=== PATIENT | male | born 1930 | race African-American/Black ===

== ENCOUNTER 2016-08-27 22:46 | Inpatient (IN) | payer MEDICARE, BC ==
[~2016-08-27] VITALS: Ht 180.3 cm; Wt 72.6 kg
[~2016-08-27 22:46] MED LIST: AMLO10TA80 PO; DIGO125T82 PO; DOCU-150 PO; FEBU80TA PO; FURO20TA4 PO; LEVO500T15 PO; NAPHAZOLINE BOTHEYE; OLOP2.5D OP
[2016-08-27] MEDS ORDERED: METHYLPREDNISOLONE SOD SUCC 125 MG/2 ML VIAL IV STA (22:53)
[2016-08-27] MEDS ORDERED: IPRATROPIUM BROMIDE (0.02%) 0.5MG/2.5ML NEB HHN STA (22:53)
[2016-08-27] MEDS ORDERED: ALBUTEROL (0.083%) 2.5MG/3ML NEB HHN STA (22:53)
[2016-08-27 23:14] LABS: BASOPHILS % 0.3 % (0.0-2.0); EOSINOPHILS % 0.3 % (0.0-5.0); HEMATOCRIT. 28.3 % (42.0-52.0); HEMOGLOBIN. 8.9 g/dL (14.0-18.0); LYMPHOCYTES % 20.2 % (20.0-50.0); MEAN CORPUSCULAR HEMOGLOBIN 26.4 pg (28.0-32.0); MEAN CORPUSCULAR HGB CONC 31.3 g/dL (31.0-37.0); MEAN CORPUSCULAR VOLUME 84.3 fL (80.0-94.0); MEAN PLATELET VOLUME 8.5 fl (7.4-10.4); MONOCYTES % 7.4 % (2.0-8.0); NEUTROPHILS % 71.8 % (40.0-76.0); PLATELET 275 x1000/uL (130-400); RED BLOOD CELL COUNT 3.36 mill/uL (4.7-6.1); RED CELL DISTRIBUTION WIDTH 19.4 % (11.6-14.6)
[2016-08-27 23:21] LABS: INR 1.1; PARTIAL THROMBOPLASTIN TIME 22.1 sec (24.0-34.0); PROTHROMBIN TIME 11.4 sec
[2016-08-27 23:26] LABS: ALANINE AMINOTRANSFERASE 32 IU/L (13-61); ALBUMIN 3.5 g/dL (3.4-5.0); ANION GAP 16; CALCIUM 8.7 mg/dL (8.5-10.1); CARBON DIOXIDE 31 mEq/L (21-32); CHLORIDE 98 mEq/L (98-107); INDEX HEMOLYSI 1 (1-3); INDEX ICTERIC 1 (1-4); INDEX LIPEMIC 1 (1-3); TROPONIN I 0.03 ng/mL (0.00-0.04); UREA NITROGEN BLOOD 67 mg/dL (7-21); eGFR 22 mL/min (>60)
[2016-08-27 23:38] LABS: NT PRO B-TYPE NATRIURETIC PEP 38215 pg/mL (5-125)
[2016-08-27] MEDS ORDERED: ALBUTEROL (0.5%) 2.5MG/0.5ML NEB HHN ONE (23:45)
[2016-08-28] MEDS ORDERED: FUROSEMIDE 40MG/4ML VIAL IVP ONE
[2016-08-28 08:10] VITALS: BP 125/91
[2016-08-28 11:01] VITALS: BP 125/91
[2016-08-28] MEDS ORDERED: ACETAMINOPHEN 325MG TABLET PO PRN (11:15)
[2016-08-28] MEDS ORDERED: DOCUSATE SODIUM 100MG CAPSULE PO PRN (11:15)
[2016-08-28] MEDS ORDERED: IPRATROPIUM/ALBUTEROL 0.5-3(2.5)MG/3ML NEB INH PRN (11:15)
[2016-08-28] MEDS ORDERED: GUAIFENESIN 200MG/10ML SUGAR FREE UDC PO PRN (11:15)
[2016-08-28] MEDS ORDERED: ONDANSETRON HCL 4MG/2ML VIAL IV PRN (11:15)
[2016-08-28 12:00] VITALS: BP 111/70
[2016-08-28] MEDS ORDERED: LEVOFLOXACIN 500MG PREMIX 100 ML IV SCH (13:00)
[2016-08-28] MEDS: FUROSEMIDE 40MG/4ML VIAL IV SCH (14:17)
[2016-08-28] MEDS: METHYLPREDNISOLONE SOD SUCC 40 MG/ML VIAL IV SCH ×2 (14:17→18:02)
[2016-08-28] MEDS: ASPIRIN 81MG EC TABLET PO SCH (14:17)
[2016-08-28] MEDS: CARVEDILOL 3.125 MG TABLET PO SCH ×2 (14:17→21:00)
[2016-08-28] MEDS: IPRATROPIUM/ALBUTEROL 0.5-3(2.5)MG/3ML NEB INH SCH ×2 (15:09→20:22)
[2016-08-28 16:00] VITALS: BP 121/68
[2016-08-28 16:15] LABS: TROPONIN I 0.02 ng/mL (0.00-0.04)
[2016-08-28 20:00] VITALS: BP 105/69
[2016-08-28 23:50] LABS: CREATINE KINASE 24 IU/L (39-308); INDEX HEMOLYSI 1 (1-3); TROPONIN I < 0.02 ng/mL (0.00-0.04)
[2016-08-29] VITALS (7 sets, daily range): BP systolic 91–122; BP diastolic 57–85
[2016-08-29] MEDS: IPRATROPIUM/ALBUTEROL 0.5-3(2.5)MG/3ML NEB INH SCH ×4 (00:54→21:09)
[2016-08-29] MEDS: METHYLPREDNISOLONE SOD SUCC 40 MG/ML VIAL IV SCH ×3 (01:04→18:46)
[2016-08-29 06:43] LABS: ALANINE AMINOTRANSFERASE 22 IU/L (13-61); ALBUMIN 3.2 g/dL (3.4-5.0); ANION GAP 17; CALCIUM 8.3 mg/dL (8.5-10.1); CARBON DIOXIDE 28 mEq/L (21-32); CHLORIDE 95 mEq/L (98-107); HDL CHOLESTEROL 64 mg/dL (40-59); INDEX HEMOLYSI 1 (1-3); INDEX ICTERIC 1 (1-4); INDEX LIPEMIC 1 (1-3); LDL CHOLESTEROL 57 mg/dL (5-100); TRIGLYCERIDE 74 mg/dL (0-150); UREA NITROGEN BLOOD 71 mg/dL (7-21); eGFR 26 mL/min (>60)
[2016-08-29 06:52] LABS: BASOPHILS % 0.1 % (0.0-2.0); HEMATOCRIT. 26.4 % (42.0-52.0); HEMOGLOBIN. 8.5 g/dL (14.0-18.0); LYMPHOCYTES % 15.4 % (20.0-50.0); MEAN CORPUSCULAR HEMOGLOBIN 27.1 pg (28.0-32.0); MEAN CORPUSCULAR HGB CONC 32.3 g/dL (31.0-37.0); MEAN CORPUSCULAR VOLUME 83.7 fL (80.0-94.0); MEAN PLATELET VOLUME 8.9 fl (7.4-10.4); MONOCYTES % 2.6 % (2.0-8.0); NEUTROPHILS % 81.9 % (40.0-76.0); PLATELET 246 x1000/uL (130-400); RED BLOOD CELL COUNT 3.15 mill/uL (4.7-6.1); RED CELL DISTRIBUTION WIDTH 19.3 % (11.6-14.6)
[2016-08-29] MEDS: FUROSEMIDE 40MG/4ML VIAL IV SCH (09:43)
[2016-08-29] MEDS: ASPIRIN 81MG EC TABLET PO SCH (09:44)
[2016-08-29] MEDS: CARVEDILOL 3.125 MG TABLET PO SCH ×2 (09:44→20:39)
[2016-08-29] MEDS: POTASSIUM CHLORIDE 10MEQ TABLET SR PO SCH (09:44)
[2016-08-29] MEDS: LEVOFLOXACIN 250MG TABLET PO SCH (18:47)
[2016-08-29] MEDS ORDERED: EPOETIN ALFA 10000UNITS/ML VIAL SUBCUT NR (21:00)
[2016-08-30] VITALS: BP 110/76
[2016-08-30] MEDS: METHYLPREDNISOLONE SOD SUCC 40 MG/ML VIAL IV SCH ×3 (03:24→17:45)
[2016-08-30] MEDS: IPRATROPIUM/ALBUTEROL 0.5-3(2.5)MG/3ML NEB INH SCH ×4 (03:45→20:47)
[2016-08-30 04:00] VITALS: BP 129/75
[2016-08-30 05:59] LABS: HEMATOCRIT. 24.5 % (42.0-52.0); HEMOGLOBIN. 7.9 g/dL (14.0-18.0); LYMPHOCYTES % 21.5 % (20.0-50.0); MEAN CORPUSCULAR HEMOGLOBIN 26.9 pg (28.0-32.0); MEAN CORPUSCULAR HGB CONC 32.2 g/dL (31.0-37.0); MEAN CORPUSCULAR VOLUME 83.6 fL (80.0-94.0); MEAN PLATELET VOLUME 8.9 fl (7.4-10.4); MONOCYTES % 2.7 % (2.0-8.0); NEUTROPHILS % 75.8 % (40.0-76.0); PLATELET 220 x1000/uL (130-400); RED BLOOD CELL COUNT 2.93 mill/uL (4.7-6.1); RED CELL DISTRIBUTION WIDTH 19.4 % (11.6-14.6); WHITE BLOOD COUNT 10.7 x1000/uL (4.5-11.0)
[2016-08-30 07:03] LABS: CHLORIDE 97 mEq/L (98-107); INDEX HEMOLYSI 1 (1-3); INDEX ICTERIC 1 (1-4); INDEX LIPEMIC 1 (1-3)
[2016-08-30 07:20] LABS: ALANINE AMINOTRANSFERASE 21 IU/L (13-61); ALBUMIN 2.8 g/dL (3.4-5.0); ANION GAP 17; CALCIUM 8.4 mg/dL (8.5-10.1); CARBON DIOXIDE 29 mEq/L (21-32); MAGNESIUM 3.3 mg/dL (1.8-2.4); PHOSPHORUS 4.4 mg/dL (2.5-4.9); eGFR 25 mL/min (>60)
[2016-08-30 08:00] VITALS: BP 114/71
[2016-08-30 08:28] LABS: UREA NITROGEN BLOOD 81 mg/dL (7-21)
[2016-08-30] MEDS: FUROSEMIDE 40MG/4ML VIAL IV SCH ×2 (09:15→17:44)
[2016-08-30] MEDS: ASPIRIN 81MG EC TABLET PO SCH (09:16)
[2016-08-30] MEDS: POTASSIUM CHLORIDE 10MEQ TABLET SR PO SCH (09:16)
[2016-08-30] MEDS: CARVEDILOL 3.125 MG TABLET PO SCH (09:16)
[2016-08-30] MEDS: LEVOFLOXACIN 250MG TABLET PO SCH (10:50)
[2016-08-30 12:00] VITALS: BP 117/71
[2016-08-30 12:15] LABS: T4 FREE 0.88 ng/dL (0.76-1.46); THYROID STIMULATING HORMONE 0.3 uIU/mL (0.36-3.74)
[2016-08-30 20:00] VITALS: BP 94/66
[2016-08-30] MEDS: CARVEDILOL 12.5MG TABLET PO SCH (21:00)
[2016-08-30] MEDS ORDERED: EPOETIN ALFA 10000UNITS/ML VIAL SUBCUT SCH (21:00)
[2016-08-31 00:10] VITALS: BP 122/57
[2016-08-31] MEDS: IPRATROPIUM/ALBUTEROL 0.5-3(2.5)MG/3ML NEB INH SCH ×3 (02:00→13:07)
[2016-08-31] MEDS: METHYLPREDNISOLONE SOD SUCC 40 MG/ML VIAL IV SCH ×2 (03:24→12:04)
[2016-08-31 04:00] VITALS: BP 118/72
[2016-08-31 05:34] LABS: BASOPHILS % 0.1 % (0.0-2.0); HEMATOCRIT. 25.9 % (42.0-52.0); HEMOGLOBIN. 8.3 g/dL (14.0-18.0); LYMPHOCYTES % 28.2 % (20.0-50.0); MEAN CORPUSCULAR HEMOGLOBIN 26.7 pg (28.0-32.0); MEAN CORPUSCULAR VOLUME 83.4 fL (80.0-94.0); MEAN PLATELET VOLUME 8.8 fl (7.4-10.4); NEUTROPHILS % 68.7 % (40.0-76.0); PLATELET 223 x1000/uL (130-400); RED CELL DISTRIBUTION WIDTH 19.7 % (11.6-14.6); WHITE BLOOD COUNT 9.5 x1000/uL (4.5-11.0)
[2016-08-31 06:19] LABS: CALCIUM 8.3 mg/dL (8.5-10.1); MAGNESIUM 3.1 mg/dL (1.8-2.4); PHOSPHORUS 4.5 mg/dL (2.5-4.9)
[2016-08-31] MEDS ORDERED: POTASSIUM CHLORIDE 20MEQ TABLET SR PO NR (08:15)
[2016-08-31] MEDS ORDERED: POTASSIUM CHLORIDE 20MEQ/15ML UDC PO ONE (10:45)
[2016-08-31] MEDS: LEVOFLOXACIN 250MG TABLET PO SCH (12:02)
[2016-08-31] MEDS: ASPIRIN 81MG EC TABLET PO SCH (12:03)
[2016-08-31] MEDS: CARVEDILOL 12.5MG TABLET PO SCH (12:03)
[2016-08-31] MEDS: POTASSIUM CHLORIDE 10MEQ TABLET SR PO SCH (12:04)
[2016-08-31] MEDS: FUROSEMIDE 40MG/4ML VIAL IV SCH (12:04)
[2016-08-31 13:47] VITALS: BP 113/87
== END 2016-08-31 14:15 | disposition home health service (06) | DRG 291 ==
LOC: ER 22:47 → 6WST 08-28 00:05
PROVIDERS: ADMIT Hospitalist; ATTEND Hospitalist
DX: I13.0 Hypertensive heart and chronic kidney disease with heart failure and stage 1 through stage 4 chronic kidney disease, or unspecified chronic kidney disease (principal); I50.23 Acute on chronic systolic (congestive) heart failure; J96.91 Respiratory failure, unspecified with hypoxia; N17.0 Acute kidney failure with tubular necrosis; J44.1 Chronic obstructive pulmonary disease with (acute) exacerbation; I47.1 Supraventricular tachycardia; I48.1 Persistent atrial fibrillation; I42.9 Cardiomyopathy, unspecified; N18.3 Chronic kidney disease, stage 3 (moderate); E87.6 Hypokalemia; D64.9 Anemia, unspecified; I25.10 Atherosclerotic heart disease of native coronary artery without angina pectoris; I34.0 Nonrheumatic mitral (valve) insufficiency; I48.2 Chronic atrial fibrillation; Z87.891 Personal history of nicotine dependence; Z95.0 Presence of cardiac pacemaker; Z88.8 Allergy status to other drugs, medicaments and biological substances; Z79.899 Other long term (current) drug therapy
CPT/HCPCS: 36415; 71010; 80048; 80053; 80061; 82550; 82728; 83540; 83550; 83735; 83880; 84100; 84439; 84443; 84484; 85025; 85610; 85730; 93005; 93970; 94640; 94664; 96374; 96375; 99285; J0885; J1940; J1956; J2920; J2930; J7050; J7611; J7620

== ENCOUNTER 2016-12-08 21:48 | Inpatient (IN) | payer MEDICARE, BC ==
[~2016-12-08] VITALS: Ht 167.6 cm; Wt 76.2 kg
[~2016-12-08 21:48] MED LIST changes: +CARV3.1242 PO; -DIGO125T82 PO; -FEBU80TA PO; -FURO20TA4 PO; -LEVO500T15 PO; -NAPHAZOLINE BOTHEYE; -OLOP2.5D OP
[2016-12-08] MEDS ORDERED: IPRATROPIUM BROMIDE (0.02%) 0.5MG/2.5ML NEB HHN STA (23:13)
[2016-12-08] MEDS ORDERED: ALBUTEROL (0.083%) 2.5MG/3ML NEB HHN STA (23:13)
[2016-12-08] MEDS ORDERED: CEFTRIAXONE 1 G PREMIX 50 ML IV ONE (23:15)
[2016-12-08] MEDS ORDERED: AZITHROMYCIN 500 MG in DEXT 5% WATER 250 ML IV ONE (23:15)
[2016-12-08 23:49] LABS: BASOPHILS % 0.6 % (0.0-2.0); EOSINOPHILS % 0.3 % (0.0-5.0); HEMATOCRIT. 28.9 % (42.0-52.0); HEMOGLOBIN. 9.5 g/dL (14.0-18.0); LYMPHOCYTES % 14.8 % (20.0-50.0); MEAN CORPUSCULAR VOLUME 85.1 fL (80.0-94.0); MEAN PLATELET VOLUME 8.8 fl (7.4-10.4); MONOCYTES % 6.2 % (2.0-8.0); NEUTROPHILS % 78.1 % (40.0-76.0); PLATELET 253 x1000/uL (130-400); RED CELL DISTRIBUTION WIDTH 18.5 % (11.6-14.6)
[2016-12-09] VITALS (9 sets, daily range): BP systolic 114–140; BP diastolic 74–85
[2016-12-09 00:08] LABS: CARBON DIOXIDE 33 mEq/L (21-32); CHLORIDE 101 mEq/L (98-107); TROPONIN I 0.11 ng/mL (0.00-0.04)
[2016-12-09 02:59] LABS: BG BASE EXCESS -11.9 mmol/L (-2.0-2.0); BG BILEVEL POS AIRWAY PRESSURE 18/5; BG CARBOXYHEMOGLOBIN 0.3 % (0.5-1.5); BG DEOXYHEMOGLOBIN 0.9 % (0.0-5.0); BG FRACTION INSPIRED OXYGEN 50; BG HCO3 ACT 12.8 mmol/L (22.0-26.0); BG METHEMOGLOBIN 0.2 % (0.0-1.5); BG OXYGEN SATURATION 99.1 % (92.0-98.5); BG OXYHEMOGLOBIN 98.6 % (94.0-97.0); BG PCO2 25.5 mmHg (35.0-45.0); BG PH 7.317 (7.350-7.450); BG PO2 203.5 mmHg (75.0-100.0); BG SAMPLE SITE RIGHT BRACHIAL; BG TOTAL HEMOGLOBIN 10.1 g/dL (12.0-18.0); BG VENT MODE MASK - BIPAP; BG VENT RATE 14 set
[2016-12-09] MEDS ORDERED: LORAZEPAM 2MG/ML CPJ IV ONE (03:00)
[2016-12-09 07:53] LABS: BASOPHILS % 0.1 % (0.0-2.0); EOSINOPHILS % 0.1 % (0.0-5.0); HEMATOCRIT. 28.2 % (42.0-52.0); LYMPHOCYTES % 11.4 % (20.0-50.0); MEAN CORPUSCULAR HEMOGLOBIN 27.6 pg (28.0-32.0); MEAN CORPUSCULAR VOLUME 86.5 fL (80.0-94.0); MEAN PLATELET VOLUME 8.4 fl (7.4-10.4); MONOCYTES % 5.2 % (2.0-8.0); NEUTROPHILS % 83.2 % (40.0-76.0); PLATELET 221 x1000/uL (130-400); RED BLOOD CELL COUNT 3.26 mill/uL (4.7-6.1); RED CELL DISTRIBUTION WIDTH 18.5 % (11.6-14.6)
[2016-12-09] MEDS ORDERED: CEFTRIAXONE 1,000 MG in DEXTROSE 5% WATER 25 ML IV SCH (09:00)
[2016-12-09 09:13] LABS: BG BASE EXCESS 4.6 mmol/L (-2.0-2.0); BG BILEVEL POS AIRWAY PRESSURE 18/5; BG CARBOXYHEMOGLOBIN 0.3 % (0.5-1.5); BG DEOXYHEMOGLOBIN 1.7 % (0.0-5.0); BG HCO3 ACT 29.3 mmol/L (22.0-26.0); BG METHEMOGLOBIN 0.4 % (0.0-1.5); BG OXYGEN SATURATION 98.3 % (92.0-98.5); BG OXYHEMOGLOBIN 97.6 % (94.0-97.0); BG PCO2 44.3 mmHg (35.0-45.0); BG PH 7.438 (7.350-7.450); BG PO2 140.8 mmHg (75.0-100.0); BG SAMPLE SITE RIGHT BRACHIAL; BG TOTAL HEMOGLOBIN 9.6 g/dL (12.0-18.0); BG VENT MODE MASK - BIPAP; BG VENT RATE 14 set
[2016-12-09] MEDS ORDERED: AMIODARONE PO (11:16)
[2016-12-09] MEDS ORDERED: RIVA10TA PO (11:16)
[2016-12-09] MEDS: AMIODARONE HCL 200 MG TABLET PO SCH ×2 (13:26→21:16)
[2016-12-09] MEDS: IPRATROPIUM BROMIDE (0.02%) 0.5MG/2.5ML NEB HHN SCH ×2 (14:05→20:53)
[2016-12-09] MEDS ORDERED: RIVAROXABAN 10 MG TABLET PO SCH (17:00)
[2016-12-09] MEDS: CARVEDILOL 3.125 MG TABLET PO SCH (20:18)
[2016-12-09] MEDS: CEFTRIAXONE 1 G PREMIX 50 ML IV SCH (21:16)
[2016-12-09] MEDS ORDERED: AZITHROMYCIN 500 MG in DEXT 5% WATER 250 ML IV SCH (23:00)
[2016-12-09] MEDS ORDERED: LORAZEPAM 2MG/ML CPJ IV NR (23:00)
[2016-12-10] VITALS (97 sets, daily range): BP systolic 54–157; BP diastolic 25–97
[2016-12-10 01:11] LABS: BG BASE EXCESS -7.5 mmol/L (-2.0-2.0); BG CARBOXYHEMOGLOBIN 0.1 % (0.5-1.5); BG DEOXYHEMOGLOBIN 3.9 % (0.0-5.0); BG FRACTION INSPIRED OXYGEN 100; BG HCO3 ACT 21.7 mmol/L (22.0-26.0); BG METHEMOGLOBIN 0.5 % (0.0-1.5); BG OXYGEN SATURATION 96.1 % (92.0-98.5); BG OXYHEMOGLOBIN 95.5 % (94.0-97.0); BG PH 7.129 (7.350-7.450); BG PO2 120.7 mmHg (75.0-100.0); BG SAMPLE SITE RIGHT FEMORAL; BG TOTAL HEMOGLOBIN 8.9 g/dL (12.0-18.0); BG VENT MODE AMBU BAG
[2016-12-10] MEDS: NOREPINEPHRINE 8 MG in DEXT 5% WATER 242 ML IV PRN ×2 (01:12→06:41)
[2016-12-10] MEDS: IPRATROPIUM BROMIDE (0.02%) 0.5MG/2.5ML NEB HHN SCH ×4 (01:48→20:14)
[2016-12-10] MEDS ORDERED: PHENYLEPHRINE 20 MG in DEXT 5% WATER 248 ML IV PRN (02:15)
[2016-12-10] MEDS ORDERED: DEXTROSE 5% WATER 1,000 ML IV SCH (02:30)
[2016-12-10 05:23] LABS: BASOPHILS % 0.2 % (0.0-2.0); EOSINOPHILS % 0.1 % (0.0-5.0); HEMATOCRIT. 28.3 % (42.0-52.0); HEMOGLOBIN. 8.7 g/dL (14.0-18.0); LYMPHOCYTES % 23.3 % (20.0-50.0); MEAN CORPUSCULAR HEMOGLOBIN 27.7 pg (28.0-32.0); MEAN CORPUSCULAR VOLUME 90.8 fL (80.0-94.0); MEAN PLATELET VOLUME 9.2 fl (7.4-10.4); MONOCYTES % 3.4 % (2.0-8.0); PLATELET 239 x1000/uL (130-400); RED BLOOD CELL COUNT 3.12 mill/uL (4.7-6.1); RED CELL DISTRIBUTION WIDTH 18.4 % (11.6-14.6)
[2016-12-10] MEDS ORDERED: LORAZEPAM 2MG/ML CPJ IV PRN ×2 (06:30→14:30)
[2016-12-10] MEDS ORDERED: SODIUM POLYSTYRENE SULFONATE 15 G/60 ML BOT PO SCH (08:00)
[2016-12-10] MEDS: DEXT 5%/0.45% NACL 1000ML 1,000 ML IV SCH (08:00)
[2016-12-10 08:09] LABS: BG BASE EXCESS -3.1 mmol/L (-2.0-2.0); BG CARBOXYHEMOGLOBIN 0.3 % (0.5-1.5); BG DEOXYHEMOGLOBIN 0.5 % (0.0-5.0); BG FRACTION INSPIRED OXYGEN 100; BG HCO3 ACT 20.7 mmol/L (22.0-26.0); BG METHEMOGLOBIN 0.5 % (0.0-1.5); BG OXYGEN SATURATION 99.5 % (92.0-98.5); BG OXYHEMOGLOBIN 98.7 % (94.0-97.0); BG PCO2 32.2 mmHg (35.0-45.0); BG PH 7.426 (7.350-7.450); BG PO2 385.9 mmHg (75.0-100.0); BG SAMPLE SITE RIGHT BRACHIAL; BG TIDAL VOLUME(mL) 450 mL; BG TOTAL HEMOGLOBIN 9.1 g/dL (12.0-18.0); BG VENT MODE VENT - A/C; BG VENT RATE 16 set
[2016-12-10] MEDS ORDERED: EPINEPHRINE 0.1MG/ML (1:10,000) 10ML SYR ONE (08:19)
[2016-12-10] MEDS ORDERED: ETOMIDATE 2MG/ML 10ML VIAL IV ONE (08:19)
[2016-12-10] MEDS ORDERED: SODIUM BICARBONATE 7.5% 0.9 MEQ/ML 50ML SYR IV ONE (08:19)
[2016-12-10] MEDS ORDERED: CALCIUM CHLORIDE 1GM/10ML SYR IV ONE (08:19)
[2016-12-10] MEDS ORDERED: DOPAMINE 400MG IN DEXT 5% 250ML PREMIX IV ONE (08:19)
[2016-12-10] MEDS ORDERED: SUCCINYLCHOLINE CHLORIDE 200MG/10ML VIAL IV ONE (08:19)
[2016-12-10 08:26] LABS: CREATINE KINASE 184 IU/L (39-308)
[2016-12-10] MEDS: AMIODARONE HCL 200 MG TABLET PO SCH ×2 (09:00→21:16)
[2016-12-10] MEDS: CARVEDILOL 3.125 MG TABLET PO SCH ×2 (09:00→21:00)
[2016-12-10 15:19] LABS: BG BASE EXCESS 1.9 mmol/L (-2.0-2.0); BG CARBOXYHEMOGLOBIN 0.2 % (0.5-1.5); BG DEOXYHEMOGLOBIN 1.2 % (0.0-5.0); BG FRACTION INSPIRED OXYGEN 60; BG HCO3 ACT 24.4 mmol/L (22.0-26.0); BG METHEMOGLOBIN 0.2 % (0.0-1.5); BG OXYGEN SATURATION 98.8 % (92.0-98.5); BG OXYHEMOGLOBIN 98.4 % (94.0-97.0); BG PCO2 30.2 mmHg (35.0-45.0); BG PH 7.525 (7.350-7.450); BG PO2 188.3 mmHg (75.0-100.0); BG SAMPLE SITE RIGHT BRACHIAL; BG TIDAL VOLUME(mL) 450 mL; BG TOTAL HEMOGLOBIN 9.5 g/dL (12.0-18.0); BG VENT MODE VENT - A/C; BG VENT RATE 16 set
[2016-12-10 16:16] LABS: CREATINE KINASE MB FRACTION 7.6 ng/mL (0.5-3.6)
[2016-12-10 16:37] LABS: TROPONIN I 1.3 ng/mL (0.00-0.04)
[2016-12-10] MEDS: RIVAROXABAN 10 MG TABLET PO SCH (17:45)
[2016-12-10] MEDS: AZITHROMYCIN 500 MG in DEXT 5% WATER 250 ML IV SCH (21:16)
[2016-12-10] MEDS: CEFTRIAXONE 1 G PREMIX 50 ML IV SCH (22:45)
[2016-12-11] VITALS (51 sets, daily range): BP systolic 111–153; BP diastolic 60–82
[2016-12-11 00:11] LABS: CREATINE KINASE MB FRACTION 3.5 ng/mL (0.5-3.6)
[2016-12-11 00:28] LABS: TROPONIN I 0.73 ng/mL (0.00-0.04)
[2016-12-11] MEDS: IPRATROPIUM BROMIDE (0.02%) 0.5MG/2.5ML NEB HHN SCH ×4 (02:04→20:37)
[2016-12-11] MEDS: DEXT 5%/0.45% NACL 1000ML 1,000 ML IV SCH ×2 (03:33→17:05)
[2016-12-11 05:00] LABS: BASOPHILS % 0.1 % (0.0-2.0); HEMATOCRIT. 26.1 % (42.0-52.0); HEMOGLOBIN. 8.5 g/dL (14.0-18.0); LYMPHOCYTES % 12.9 % (20.0-50.0); MEAN CORPUSCULAR HEMOGLOBIN 27.6 pg (28.0-32.0); MEAN CORPUSCULAR VOLUME 85.1 fL (80.0-94.0); MEAN PLATELET VOLUME 9.4 fl (7.4-10.4); MONOCYTES % 4.7 % (2.0-8.0); NEUTROPHILS % 82.3 % (40.0-76.0); PLATELET 205 x1000/uL (130-400); RED BLOOD CELL COUNT 3.07 mill/uL (4.7-6.1); RED CELL DISTRIBUTION WIDTH 17.9 % (11.6-14.6)
[2016-12-11 05:29] LABS: CREATINE KINASE MB FRACTION 2.7 ng/mL (0.5-3.6); PHOSPHORUS 4.1 mg/dL (2.5-4.9)
[2016-12-11 05:57] LABS: TROPONIN I 0.65 ng/mL (0.00-0.04)
[2016-12-11 07:34] LABS: BG CARBOXYHEMOGLOBIN 0.2 % (0.5-1.5); BG DEOXYHEMOGLOBIN 1.9 % (0.0-5.0); BG FRACTION INSPIRED OXYGEN 50; BG HCO3 ACT 22.8 mmol/L (22.0-26.0); BG METHEMOGLOBIN 1.4 % (0.0-1.5); BG OXYGEN SATURATION 98.1 % (92.0-98.5); BG OXYHEMOGLOBIN 96.5 % (94.0-97.0); BG PCO2 26.8 mmHg (35.0-45.0); BG PH 7.548 (7.350-7.450); BG PO2 145.6 mmHg (75.0-100.0); BG SAMPLE SITE RIGHT RADIAL; BG TIDAL VOLUME(mL) 450 mL; BG TOTAL HEMOGLOBIN 9.3 g/dL (12.0-18.0); BG VENT MODE VENT - A/C; BG VENT RATE 12 set
[2016-12-11] MEDS: CARVEDILOL 3.125 MG TABLET PO SCH ×2 (09:00→21:58)
[2016-12-11] MEDS: AMIODARONE HCL 200 MG TABLET PO SCH ×2 (13:09→21:58)
[2016-12-11 16:10] LABS: CREATINE KINASE MB FRACTION 1.6 ng/mL (0.5-3.6)
[2016-12-11 16:31] LABS: TROPONIN I 0.45 ng/mL (0.00-0.04)
[2016-12-11] MEDS: RIVAROXABAN 10 MG TABLET PO SCH (17:41)
[2016-12-11] MEDS: AZITHROMYCIN 500 MG in DEXT 5% WATER 250 ML IV SCH (21:58)
[2016-12-11] MEDS: CEFTRIAXONE 1 G PREMIX 50 ML IV SCH (22:00)
[2016-12-12] VITALS (13 sets, daily range): BP systolic 98–134; BP diastolic 58–77
[2016-12-12] MEDS: IPRATROPIUM BROMIDE (0.02%) 0.5MG/2.5ML NEB HHN SCH ×4 (02:50→20:55)
[2016-12-12 07:05] LABS: BASOPHILS % 0.2 % (0.0-2.0); HEMOGLOBIN. 7.5 g/dL (14.0-18.0); LYMPHOCYTES % 16.4 % (20.0-50.0); MEAN CORPUSCULAR HEMOGLOBIN 27.7 pg (28.0-32.0); MEAN CORPUSCULAR VOLUME 84.5 fL (80.0-94.0); MEAN PLATELET VOLUME 9.3 fl (7.4-10.4); MONOCYTES % 4.4 % (2.0-8.0); PLATELET 189 x1000/uL (130-400); RED BLOOD CELL COUNT 2.72 mill/uL (4.7-6.1)
[2016-12-12] MEDS: CARVEDILOL 3.125 MG TABLET PO SCH (08:16)
[2016-12-12] MEDS: AMIODARONE HCL 200 MG TABLET PO SCH (08:23)
[2016-12-12] MEDS: DEXT 5%/0.45% NACL 1000ML 1,000 ML IV SCH (09:45)
[2016-12-12] MEDS ORDERED: MORPHINE SULFATE 4 MG/ML CPJ (NOT FOR IM USE) IV SCH (10:45)
[2016-12-12] MEDS ORDERED: MORPHINE SULFATE 2 MG/ML CPJ (NOT FOR IM USE) IV PRN (10:45)
[2016-12-12] MEDS ORDERED: LORAZEPAM 2MG/ML CPJ IV PRN (14:30)
[2016-12-13] VITALS (11 sets, daily range): BP systolic 118–143; BP diastolic 58–78
[2016-12-13] MEDS: IPRATROPIUM BROMIDE (0.02%) 0.5MG/2.5ML NEB HHN SCH ×4 (01:32→20:29)
[2016-12-13] MEDS: DEXT 5%/0.45% NACL 1000ML 1,000 ML IV SCH ×2 (03:03→18:15)
[2016-12-13] MEDS: MORPHINE SULFATE 4 MG/ML CPJ (NOT FOR IM USE) IV PRN (09:44)
[2016-12-13] MEDS ORDERED: LORAZEPAM 2MG/ML CPJ IV PRN (14:30)
[2016-12-14] VITALS (11 sets, daily range): BP systolic 115–128; BP diastolic 58–87
[2016-12-14] MEDS: IPRATROPIUM BROMIDE (0.02%) 0.5MG/2.5ML NEB HHN SCH ×4 (02:30→20:12)
[2016-12-14] MEDS ORDERED: LORAZEPAM 2MG/ML CPJ IV SCH (07:30)
[2016-12-14] MEDS ORDERED: LORAZEPAM 2MG/ML CPJ IV PRN (08:00)
[2016-12-14] MEDS: LORAZEPAM 2MG/ML CPJ IV SCH ×3 (08:29→20:55)
[2016-12-14] MEDS: DEXT 5%/0.45% NACL 1000ML 1,000 ML IV SCH (11:58)
[2016-12-15] VITALS (12 sets, daily range): BP systolic 102–146; BP diastolic 53–73
[2016-12-15] MEDS: IPRATROPIUM BROMIDE (0.02%) 0.5MG/2.5ML NEB HHN SCH ×4 (02:18→20:01)
[2016-12-15] MEDS: LORAZEPAM 2MG/ML CPJ IV SCH ×4 (02:33→21:07)
[2016-12-15] MEDS: DEXT 5%/0.45% NACL 1000ML 1,000 ML IV SCH (09:33)
[2016-12-15] MEDS: MORPHINE SULFATE 4 MG/ML CPJ (NOT FOR IM USE) IV PRN (12:09)
[2016-12-15] MEDS ORDERED: MORPHINE SULFATE 4 MG/ML CPJ (NOT FOR IM USE) IV PRN (20:45)
[2016-12-16] VITALS (13 sets, daily range): BP systolic 107–136; BP diastolic 50–67
[2016-12-16] MEDS: IPRATROPIUM BROMIDE (0.02%) 0.5MG/2.5ML NEB HHN SCH ×4 (01:30→20:35)
[2016-12-16] MEDS: LORAZEPAM 2MG/ML CPJ IV SCH ×4 (04:27→19:48)
[2016-12-16] MEDS: DEXT 5%/0.45% NACL 1000ML 1,000 ML IV SCH (19:48)
[2016-12-17] VITALS (12 sets, daily range): BP systolic 107–134; BP diastolic 46–68
[2016-12-17] MEDS: LORAZEPAM 2MG/ML CPJ IV SCH ×4 (01:33→20:15)
[2016-12-17] MEDS: IPRATROPIUM BROMIDE (0.02%) 0.5MG/2.5ML NEB HHN SCH ×3 (07:36→20:00)
[2016-12-17] MEDS: DEXT 5%/0.45% NACL 1000ML 1,000 ML IV SCH (17:35)
[2016-12-18] VITALS (12 sets, daily range): BP systolic 96–130; BP diastolic 48–84
[2016-12-18] MEDS: IPRATROPIUM BROMIDE (0.02%) 0.5MG/2.5ML NEB HHN PRN (01:49)
[2016-12-18] MEDS: LORAZEPAM 2MG/ML CPJ IV SCH ×4 (02:14→19:48)
[2016-12-18] MEDS: IPRATROPIUM BROMIDE (0.02%) 0.5MG/2.5ML NEB HHN SCH ×3 (08:20→20:44)
[2016-12-18] MEDS: DEXT 5%/0.45% NACL 1000ML 1,000 ML IV SCH (15:09)
[2016-12-18] MEDS: MORPHINE SULFATE 4 MG/ML CPJ (NOT FOR IM USE) IV PRN ×2 (18:04→23:11)
[2016-12-19] VITALS (10 sets, daily range): BP systolic 96–126; BP diastolic 44–62
[2016-12-19] MEDS: LORAZEPAM 2MG/ML CPJ IV SCH ×4 (01:34→20:09)
[2016-12-19] MEDS: IPRATROPIUM BROMIDE (0.02%) 0.5MG/2.5ML NEB HHN SCH ×3 (01:48→13:59)
[2016-12-19] MEDS: MORPHINE SULFATE 4 MG/ML CPJ (NOT FOR IM USE) IV PRN (04:13)
[2016-12-19 06:51] LABS: EOSINOPHILS % 0.3 % (0.0-5.0); HEMATOCRIT. 22.6 % (42.0-52.0); HEMOGLOBIN. 7.2 g/dL (14.0-18.0); LYMPHOCYTES % 7.9 % (20.0-50.0); MEAN CORPUSCULAR HEMOGLOBIN 27.1 pg (28.0-32.0); MEAN CORPUSCULAR VOLUME 84.7 fL (80.0-94.0); MEAN PLATELET VOLUME 7.7 fl (7.4-10.4); MONOCYTES % 3.5 % (2.0-8.0); NEUTROPHILS % 88.3 % (40.0-76.0); PLATELET 232 x1000/uL (130-400); RED BLOOD CELL COUNT 2.67 mill/uL (4.7-6.1)
[2016-12-19] MEDS: DEXT 5%/0.45% NACL 1000ML 1,000 ML IV SCH (08:35)
[2016-12-19] MEDS ORDERED: POTASSIUM CHLORIDE 20MEQ/PACKET NG SCH (09:45)
[2016-12-19] MEDS: DEXT 5%/0.45% NACL KCL 40MEQ/L 1,000 ML IV SCH (10:56)
[2016-12-19] MEDS: IPRATROPIUM BROMIDE (0.02%) 0.5MG/2.5ML NEB HHN PRN (20:38)
[2016-12-20] VITALS (12 sets, daily range): BP systolic 107–134; BP diastolic 48–82
[2016-12-20] MEDS: DEXT 5%/0.45% NACL KCL 40MEQ/L 1,000 ML IV SCH ×2 (01:02→15:30)
[2016-12-20] MEDS: IPRATROPIUM/ALBUTEROL 0.5-3(2.5)MG/3ML NEB HHN SCH ×4 (01:06→20:41)
[2016-12-20] MEDS: LORAZEPAM 2MG/ML CPJ IV SCH ×3 (03:47→18:35)
[2016-12-20] MEDS: MORPHINE SULFATE 4 MG/ML CPJ (NOT FOR IM USE) IV PRN (15:31)
[2016-12-21] VITALS (12 sets, daily range): BP systolic 99–137; BP diastolic 47–94
[2016-12-21] MEDS: IPRATROPIUM/ALBUTEROL 0.5-3(2.5)MG/3ML NEB HHN SCH ×4 (01:55→20:08)
[2016-12-21] MEDS ORDERED: LORAZEPAM 2MG/ML CPJ IV SCH (02:00)
[2016-12-21] MEDS: DEXT 5%/0.45% NACL KCL 40MEQ/L 1,000 ML IV SCH ×2 (03:00→18:47)
[2016-12-21] MEDS ORDERED: MORPHINE SULFATE 1MG/ML 1ML INJ SYR(NEO) IV SCH (08:15)
[2016-12-21] MEDS: MORPHINE (DRIP)100 MG in DEXT 5% WATER 100ML IV SCH (12:15)
[2016-12-21] MEDS: LORAZEPAM 2MG/ML CPJ IV SCH ×2 (14:06→20:35)
[2016-12-22] VITALS (12 sets, daily range): BP systolic 90–115; BP diastolic 48–57
[2016-12-22] MEDS: LORAZEPAM 2MG/ML CPJ IV SCH ×4 (01:08→20:54)
[2016-12-22] MEDS: IPRATROPIUM/ALBUTEROL 0.5-3(2.5)MG/3ML NEB HHN SCH ×4 (03:22→20:02)
[2016-12-22] MEDS: DEXT 5%/0.45% NACL KCL 40MEQ/L 1,000 ML IV SCH ×3 (06:33→21:00)
[2016-12-22] MEDS: MORPHINE (DRIP)100 MG in DEXT 5% WATER 100ML IV SCH (14:44)
[2016-12-23] VITALS (12 sets, daily range): BP systolic 105–132; BP diastolic 46–66
[2016-12-23] MEDS: LORAZEPAM 2MG/ML CPJ IV SCH ×4 (01:27→20:50)
[2016-12-23] MEDS: IPRATROPIUM/ALBUTEROL 0.5-3(2.5)MG/3ML NEB HHN SCH ×5 (01:53→20:58)
[2016-12-23] MEDS: DEXT 5%/0.45% NACL KCL 40MEQ/L 1,000 ML IV SCH (08:02)
[2016-12-23] MEDS: MORPHINE (DRIP)100 MG in DEXT 5% WATER 100ML IV SCH (12:47)
[2016-12-24] VITALS (8 sets, daily range): BP systolic 115–139; BP diastolic 50–69
[2016-12-24] MEDS: IPRATROPIUM/ALBUTEROL 0.5-3(2.5)MG/3ML NEB HHN SCH ×3 (01:30→14:05)
[2016-12-24] MEDS: LORAZEPAM 2MG/ML CPJ IV SCH ×3 (02:21→15:33)
[2016-12-24] MEDS: DEXT 5%/0.45% NACL KCL 40MEQ/L 1,000 ML IV SCH ×2 (05:02→11:00)
[2016-12-24] MEDS: MORPHINE (DRIP)100 MG in DEXT 5% WATER 100ML IV SCH (10:00)
== END 2016-12-24 17:42 | disposition expired | DRG 207 ==
LOC: ER 21:48 → 5EST 12-09 02:26 → EDBEDREQSVC 12-09 02:53 → EDBEDREQ 12-09 02:56 → ENRESERV 12-09 07:04 → MICUNO 12-10 00:48 → 5EST 12-11 17:27
PROVIDERS: ADMIT Internal Medicine Critical Care Medicine; ATTEND Internal Medicine Critical Care Medicine
PROC: 0BH17EZ Insertion of Endotracheal Airway into Trachea, Via Natural or Artificial Opening (ICD-10-PCS; principal; 2016-12-10)
PROC: 5A1955Z Respiratory Ventilation, Greater than 96 Consecutive Hours (ICD-10-PCS; 2016-12-10)
DX: J96.91 Respiratory failure, unspecified with hypoxia (principal); E43 Unspecified severe protein-calorie malnutrition; N17.0 Acute kidney failure with tubular necrosis; G93.1 Anoxic brain damage, not elsewhere classified; C78.01 Secondary malignant neoplasm of right lung; E87.2 Acidosis; I13.0 Hypertensive heart and chronic kidney disease with heart failure and stage 1 through stage 4 chronic kidney disease, or unspecified chronic kidney disease; I42.9 Cardiomyopathy, unspecified; I47.2 Ventricular tachycardia; R64 Cachexia; Z99.11 Dependence on respirator [ventilator] status; S22.089A Unspecified fracture of T11-T12 vertebra, initial encounter for closed fracture; S32.019A Unspecified fracture of first lumbar vertebra, initial encounter for closed fracture; C78.7 Secondary malignant neoplasm of liver and intrahepatic bile duct; C78.02 Secondary malignant neoplasm of left lung; C26.9 Malignant neoplasm of ill-defined sites within the digestive system; D64.9 Anemia, unspecified; G25.3 Myoclonus; I25.10 Atherosclerotic heart disease of native coronary artery without angina pectoris; I27.2 Other secondary pulmonary hypertension; J44.9 Chronic obstructive pulmonary disease, unspecified; I46.9 Cardiac arrest, cause unspecified; I48.0 Paroxysmal atrial fibrillation; I50.9 Heart failure, unspecified; N18.3 Chronic kidney disease, stage 3 (moderate); N28.1 Cyst of kidney, acquired; Z66 Do not resuscitate; Z87.891 Personal history of nicotine dependence; Z95.0 Presence of cardiac pacemaker; Z95.810 Presence of automatic (implantable) cardiac defibrillator; Z99.81 Dependence on supplemental oxygen; Z88.8 Allergy status to other drugs, medicaments and biological substances; Z68.27 Body mass index [BMI] 27.0-27.9, adult
CPT/HCPCS: 31500; 36415; 36600; 70450; 71010; 71250; 76770; 80048; 80053; 82375; 82378; 82550; 82553; 82805; 82962; 83605; 83735; 83880; 84100; 84132; 84484; 85025; 87040; 92950; 93005; 93970; 94002; 94003; 94640; 96365; 96367; 99291; J0171; J0330; J0456; J0696; J1265; J2060; J2270; J2370; J3490; J7050; J7060; J7611; J7620; A4315